=== PATIENT | female | born 1980 ===

== ENCOUNTER 2019-02-07 15:50 | Observation (INO) ==
[~2019-02-07 15:50] MED LIST: BUPivacaine Inj 0.25% PF - 10ml vial ONE; Bacteriostatic NaCl Inj 30ml Vial ONE; KETOROLAC 30 MG/1 ML VIAL ONE; Lactated Ringers 1,000 ML PRIMARY IV ONE; MIDAZOLAM HCL 2 MG/2 ML VIAL ONE; ONDANSETRON 4 MG/2 ML VIAL ONE; PROPOFOL 10 MG/1 ML (200 MG/20 ML) VIAL IV ONE; ROCURONIUM 10 MG/1 ML - 5 ML VIAL IVP ONE; SUCCINYLCHOLINE CHLORIDE 20 MG/1 ML - 10 ML ONE; fentaNYL Inj 100 MCG/2 ML VIAL ONE
[2019-02-07] MEDS ORDERED: CefOXitin Inj 1 GM in Sodium Chloride 0.9% 100 ML IV ONE (15:51)
--- NOTE | 2019-02-07 15:57 | PDOC ---
HPI - History of Present Illness Date of Service: 02/07/19 Time of Service: 15:52 Chief Complaint: This is a 39-year-old female who's been having abdominal pain for 3 days. The pain is progressively getting more severe. It's connatal mid abdomen does not really radiate to the right lower quadrant. History of Present Illness: 31-year-old female who is incarcerated and [facility] [place]. She has had 3 day history of right lower quadrant abdominal pain. Patient states pain is progressively gets worse. Time they bump gets worse. She states that the pain is not real localizing the right lower quadrant. Patient came in the emergency room in [place] at 11,000 white count and no left shift otherwise labs are unremarkable. Patient had a CT scan which showed a 1 cm appendix with some periappendiceal stranding. Being consistent with a acute appendicitis. They also question whether she had a torsed liver left ovary. I reviewed the CT scan with the another radiologist agrees that she has acute appendicitis. Appendix is somewhat in the midline of the abdomen. Is have a floppy cecum. Past Medical History Surgical History: Patient's had 3 C-sections Review of Systems - Review of Systems All Systems: Reviewed & No Additional Complaints Except as Stated Exam - General General Appearance: Cooperative, Mild Distress - Eye Eye Exam: POSITIVE: PERRL, EOMI - Neck Neck Exam: Normal Inspection, Full ROM - Respiratory Respiratory Exam: POSITIVE: Clear to Auscultation - Bilaterally, Breathing Non Labored - GI/Abdominal GI/Abdominal Exam: POSITIVE: Soft Additional GI/Abdominal Exam Details: Patient has periumbilical pain. She is soft but does have some guarding there is rebound tenderness. Assessment and Plan - Patient Problems (1) Acute appendicitis Status: Acute Code(s): K35.80 - Unspecified acute appendicitis
[2019-02-07] MEDS ORDERED: CefOXitin Inj 2 GM in Sodium Chloride 0.9% 100 ML IV ONE (15:59)
[2019-02-07] MEDS ORDERED: Lactated Ringers 1,000 ML PRIMARY IV SCH (16:00)
[2019-02-07] MEDS: Nasal Sanitizer POPSWAB ampule 3 AMP (Nozin) PREOP DOSE ENOS SCH ×2 (16:00→18:39)
[2019-02-07] MEDS ORDERED: Sodium Chloride 0.9% 100 ML IV ONE (16:03)
[2019-02-07] MEDS ORDERED: fentaNYL Inj 100 MCG/2 ML VIAL ONE ×2 (16:10→16:45)
[2019-02-07] MEDS ORDERED: DEXAMETHASONE PF 10 MG/1 ML VIAL ONE (16:59)
--- NOTE | 2019-02-07 17:37 | CRNA.PROGR ---
Anesthesia Time - Procedure/Recovery Time Start Date: 02/07/19 End Date: 02/07/19 Anesthesia : Time In: 16:05 Anesthesia : Time Out: 17:31 Anesthesia : Total Time: 86 - Total Anesthesia Time Total Anesthesia Time (minutes): 86 - Other Physical Status: P2 Anesthesia Type: General Anesthesia : ET
[2019-02-07] MEDS ORDERED: NALOXONE 0.4 MG/1 ML VIAL IVP PRN ×2 (17:39→17:50)
[2019-02-07] MEDS ORDERED: KETOROLAC 15 MG/1 ML VIAL IVP PRN (17:39)
[2019-02-07] MEDS ORDERED: HYDROcodone-APAP 5 MG -325 MG TABLET PO PRN (17:39)
[2019-02-07] MEDS ORDERED: MORPHINE SULFATE 2 MG/1 ML IVP PRN ×2 (17:39→17:50)
--- NOTE | 2019-02-07 17:39 | CRNA.PROGR ---
Post Anesthesia Phase II - Post Anesthesia Phase II Patient Stable and Discharged To: Phase II Care Assumed By Surgeon: Eldon Verde MD Temperature: 97.5 F Pulse Rate: 111 Respiratory Rate: 18 Blood Pressure: 111/52 Pulse Ox: 100 Total Anuja Score at Discharge: 9 Post Anesthesia Discharge Criteria Met: Yes
--- NOTE | 2019-02-07 17:39 | GEN.OPNOTE ---
Operative Note Surgery Date: 02/07/19 Preoperative Diagnosis: Acute appendicitis Postoperative Diagnosis: Acute appendicitis with necrosis of the appendix Procedure: Laparoscopic appendectomy Surgeon: Papito Verde MD Fuel Dock Attendant: Boone Smith MD Anesthesia Provider: Erum Pichardo CRNA Anesthesia Type: General Estimated Blood Loss (mL): 2 Fluids: Lactated Ringer's please see anesthesia notes in the EMR. 2 g of Mefoxin Pathology: Appendix sent Indications: Patient's been having abdominal pain. Patient's CT scan shows a what appeared to be an early appendicitis. There is also question on the CT scan with she had a torsed left ovary. Therefore I did ask Dr. Smith to assist for evaluation of the left ovary Findings: Patient had a necrotic appendix and not ruptured. The right fallopian tube was scarred down to the cecum. Right ovary was normal. Left ovary had a follicular cyst. There is no torsion of the ovary. Operative Summary: Patient is brought operating room. Placed supine position. He seemed general endotracheal anesthesia. Prepped draped sterile fashion. Timeout performed per protocols. I infiltrated quarter percent Marcaine at each my trocar sites for postoperative pain control. I made a small incision below the umbilicus. Veress needle was inserted and a pneumoperitoneum was obtained. After an adequate pneumoperitoneum I used the Visiport place a 5 mm trocar in the umbi licus. Patient had dense adhesions of the omentum up to the penicillin incision. Placed a 10 mm trocar at the left lateral aspect of rifampicin incision. Then using the gyrus took down the adhesions of the omentum. There is adequate hemostasis. This allowed us to see her left ovary. She had a follicular cyst. Ovary was not torsed. I then was able to identify the cecum. We then place a 5 mm trocar in the Pfannenstiel incision. We then able to move the cecum to identify and a necrotic appendix. We grasped the appendix with the 5 mm Magnus. I then took down the mesoappendix with the gyrus. I then put 3 Endoloops across the around the appendix to let us base 1 little bit higher and divided the appendix. Appendix was placed in the Endo Catch. His then brought out of 10 mm trocar site. I irrigated until clear. There is no additional pathology that was noted. Counts were correct. We deinsufflated the abdomen and removed all trochars. The 10 mm trocar site was closed with a simple interrupted 0 Vicryl suture. The 5 mm trocar sites were not closed. Skin reapproximated using 4-0 Monocryl simple running septic restitch is. Steri- Strips applied sterile dressings were applied. She transferred recovery room in stable condition. Patient Problems - Patient Problem List (1) Acute appendicitis Current Visit: Yes Status: Acute Code(s): K35.80 - Unspecified acute appendicitis Category: Medical Procedure Codes - Surgical Procedures Primary Surgical Procedure: 19029 : Appendectomy, Lap
[2019-02-07] MEDS ORDERED: D5-1/2NS 1,000 ML PRIMARY IV SCH (17:45)
[2019-02-07] MEDS ORDERED: CefOXitin Inj 2 GM in Sodium Chloride 0.9% 100 ML IV SCH (18:00)
[2019-02-07] MEDS: D5-1/2NS 1,000 ML PRIMARY IV SCH (18:39)
[2019-02-07] MEDS: KETOROLAC 15 MG/1 ML VIAL IVP PRN (18:59)
[2019-02-07] MEDS: HYDROcodone-APAP 5 MG -325 MG TABLET PO PRN (20:39)
[2019-02-08] MEDS: HYDROcodone-APAP 5 MG -325 MG TABLET PO PRN ×3 (00:11→08:16)
[2019-02-08] MEDS: D5-1/2NS 1,000 ML PRIMARY IV SCH (04:01)
[2019-02-08] MEDS: KETOROLAC 15 MG/1 ML VIAL IVP PRN (04:04)
[2019-02-08] MEDS ORDERED: CefOXitin Inj 2 GM in Sodium Chloride 0.9% 100 ML IV SCH (05:45)
[2019-02-08 06:29] VITALS: BP 99/57; RESP 14; TEMP 97.5; O2SAT 95
--- NOTE | 2019-02-08 08:58 | DCSUMMARY ---
Discharge Summary Admit Date: 02/07/19 Discharge Date: 02/08/19 Admitting Diagnosis: acute appendicitis Discharge Diagnosis: Acute appendicitis Primary Surgery and Date: Appendectomy on 02/07/2019 Hospital Course: Patient was admitted to surgery after being transferred from the hospital and [facility]. Patient was taken to surgery for laparoscopic appendectomy on date of admission. Patient immediately felt better. First postoperative day patient was doing fine having no abdominal pain. Tolerating diet. She is to be transferred back to the correctional facility at [place] Exam - Vitals Vital Signs: Vital Signs Temperature 97.5 F Temperature Source Temporal Artery Scan Pulse Rate [Apical] 78 Pulse Rate [Pulse Oximeter] 64 Pulse Rate 111 Respiratory Rate 14 Blood Pressure [Left Arm] 99/57 Blood Pressure 111/52 Pulse Ox 95 Oxygen Flow Rate 1 Oxygen Delivery Method Room Air Height 5 ft 4 in Weight 147 lb 12.8 oz - GI/Abdominal GI/Abdominal Exam: POSITIVE: Non Tender, Non Distended, Soft Patient Problems - Patient Problem List (1) Acute appendicitis Current Visit: Yes Status: Acute Code(s): K35.80 - Unspecified acute appendicitis Category: Medical
== END 2019-02-08 09:57 ==
LOC: MED/SURG 15:50 → OR 15:58
PROVIDERS: ADMIT Surgery; ATTEND Surgery